=== PATIENT | female | born 1995 | race Caucasian/White ===

== ENCOUNTER 2016-10-06 01:23 | Emergency (ER) | payer OTHER ==
[2016-10-06 01:37] VITALS: BP 103/68; PULSE 124; RESP 16; TEMP 97; O2SAT 94
[2016-10-06 01:41] LABS: % IMMATURE GRANULYOCYTES 0.3 % (0.0-1.1); ABSOLUTE IMMATURE GRANULOCYTES 0.05 10^3/uL (0.00-0.10); ADD DIFF? NO; ADD MORPH? NO; ADD SCAN? NO; ATYPICAL LYMPHOCYTE FLAG 0 (0-99); FRAGMENT RBC FLAG 0 (0-99); HEMATOCRIT 46.5 % (38.0-47.0); HEMOGLOBIN 16.4 g/dL (12.6-16.3); LEFT SHIFT FLG 0 (0-99); LIPEMIA HEMOLYSIS FLAG 90 (0-99); MEAN CELL HEMOGLOBIN 33.1 pg (27.9-34.1); MEAN CELL HEMOGLOBIN CONCENTR. 35.3 g/dL (32.4-36.7); MEAN CELL VOLUME 93.9 fL (81.5-99.8); MEAN PLATELET VOLUME 8.8 fL (8.7-11.7); PLATELET CLUMPS FLAG 0 (0-99); PLATELET COUNT 382 10^3/uL (150-400); RED BLOOD CELL COUNT 4.95 10^6/uL (4.18-5.33); RED CELL DISTRIBUTION WIDTH 11.4 % (11.5-15.2)
[2016-10-06 01:51] LABS: ALANINE AMINOTRANSFERASE 35 IU/L (9-52); ALBUMIN 4.9 g/dL (3.5-5.0); ALKALINE PHOSPHATASE 75 IU/L (38-126); ANION GAP 15 mEq/L (8-16); ASPARTATE AMINOTRANSFERASE 28 IU/L (14-46); BILIRUBIN,TOTAL 0.5 mg/dL (0.1-1.4); CALCIUM 9.4 mg/dL (8.5-10.4); CARBON DIOXIDE 20 mEq/l (22-31); CHLORIDE 112 mEq/L (97-110); CREATININE 0.7 mg/dL (0.6-1.0); GLOMERULAR FILTRATION RATE > 60; GLUCOSE 94 mg/dL (70-100); POTASSIUM 4.3 mEq/L (3.5-5.2); SODIUM 147 mEq/L (134-144); TOTAL PROTEIN 8.1 g/dL (6.3-8.2)
[2016-10-06 02:00] LABS: ETHANOL SERUM 355 mg/dL (0-10)
[2016-10-06] MEDS ORDERED: ONDANSETRON 4 MG/2 ML VIAL ONE (02:00)
[2016-10-06] MEDS ORDERED: ONDANSETRON 4 MG/2 ML VIAL IVP ONE (02:04)
--- NOTE | 2016-10-06 05:20 | EDPHY ---
H & P Stated Complaint: per ems pt fell hitting head, on arrival pt unresponsive, woke with narcan Time Seen by Provider: 10/06/16 01:29 HPI/ROS: HPI: The patient presents with fall which occurred just prior to arrival. Apparently, she had been drinking alcohol tonight and fell outside of a green party she was attending. She landed on her right forehead and lost consciousness. When paramedics arrived, she was minimally responsive to sternal rub. Her eyes were closed. She was given a dose of Narcan with improvement in her mental status post still fairly sleepy. Vital signs were unremarkable. She is unable to answer questions for me currently. REVIEW OF SYSTEMS Constitutional: No fever, no chills. Eyes: No discharge. ENT: No sore throat. Cardiovascular: No chest pain, no palpitations. Respiratory: No cough, no shortness of breath. Gastrointestinal: No abdominal pain, no vomiting. Genitourinary: No hematuria. Musculoskeletal: No back pain. Skin: No rashes. Neurological: No headache. PMHx: Healthy TRAUMA PHYSICAL General Appearance: Obviously intoxicated, vomiting Head: Right eyebrow 1 cm laceration which is slightly gaping Eyes: Pupils equal, round, reactive ENT, Mouth: No hemotypanium, no oral trauma Neck: Non- tender, trachea midline Respiratory: No chest wall tenderness, no subcutaneous air, lungs clear bilaterallty Cardiovascular: Regular rate and rhythm Abdomen: Abdomen is soft and non-tender, pelvis stable Skin: No lacerations, No abrasion Back: No midline T/L/S pain Extremities: Non-tender, full range of motion Neurological: Oriented to person only, GCS=15,normal motor function with 5/5 strength in all 4 extremities, normal sensory exam Source: Patient, EMS Exam Limitations: Intoxication - Personal History LMP (Females 10-55): 8-14 Days Ago Current Tetanus Diphtheria and Acellular Pertussis (TDAP): Unsure - Medical/Surgical History Hx Asthma: No Hx Chronic Respiratory Disease: No Hx Diabetes: No Hx Cardiac Disease: No Hx Renal Disease: No Hx Cirrhosis: No Hx Alcoholism: No Hx HIV/AIDS: No Hx Splenectomy or Spleen Trauma: No Other PMH: none Constitutional: Initial Vital Signs Temperature (C) 36.1 C 10/06/16 01:33 Heart Rate 124 H 10/06/16 01:33 Respiratory Rate 16 10/06/16 01:33 Blood Pressure 103/68 10/06/16 01:33 O2 Sat (%) 94 10/06/16 01:33 O2 Delivery Mode Room Air Allergies/Adverse Reactions: No Known Allergies Allergy (Unverified 10/06/16 01:37) Home Medications: Medication Instructions Recorded NK [No Known Home Meds] 10/06/16 Medical Decision Making - Diagnostics Imaging: CT scan of head shows no intracranial hemorrhage, discussed with Dr. Lozoya of Radiology. Procedures: LACERATION REPAIR Procedure: Laceration repair. Verbal consent was obtained from the patient. The linear 1 cm laceration on the right eyebrow was anesthetized using lidocaine with epinephrine. The wound was scrubbed, draped and explored to its base with a gloved finger. There were no deep structures involved. No tendon injury was identified. . The wound was repaired with 5. 0 nonabsorbable nylon sutures. The wound repair was simple. The procedure was performed by myself. Differential Diagnosis: This is a 21-year-old female presents as a limited trauma activation. She had a fall from standing, landing on her right forehead. She had loss of consciousness. She was given a dose of Narcan in the field with improved mentation. Here, she seems quite intoxicated. She denies any complaints though is unable to give a proper history. Differential diagnosis includes closed head injury, intracranial hemorrhage, concussion, forehead laceration, polysubstance abuse, alcohol intoxication. In the emergency room, the patient metabolized her alcohol. She denies any cold ingestions. She is feeling well enough to go. [facility]. - Data Points Laboratory Results: Laboratory Results 10/06/16 01:30 10/06/16 01:30 Medications Given: Discontinued Medications Ondansetron HCl (Zofran) 4 mg IVP EDNOW ONE Stop: 10/06/16 02:05 Last Admin: 10/06/16 02:06 Dose: 4 mg Departure - Departure Disposition: Home, Routine, Self-Care Clinical Impression: Fall from standing, Laceration of eyebrow, right, Alcohol intoxication Condition: Good Instructions: Care For Your Stitches (ED), Facial Laceration (ED) Additional Instructions: Your stitches should be taken out in 5 days. You can return to the emergency room for this or see your regular doctor. Referrals: [facility] [Outside] - As per Instructions
== END 2016-10-06 06:32 | disposition home or self-care (01) ==
LOC: EDUNIT#
PROC: 0HQ1XZZ Repair Face Skin, External Approach (ICD-10-PCS; principal; 2016-10-06)
DX: S01.111A Laceration without foreign body of right eyelid and periocular area, initial encounter (principal); F10.129 Alcohol abuse with intoxication, unspecified; W18.00XA Striking against unspecified object with subsequent fall, initial encounter
CPT/HCPCS: 80305; 96374; G0480; J2405